=== PATIENT | female | born 1995 | race Caucasian/White ===

== ENCOUNTER 2024-02-29 10:04 | Emergency (ER) | payer OTHER, SELFPAY ==
[2024-02-29] VITALS (9 sets, daily range): BP systolic 94–120; BP diastolic 63–88; PULSE 90–96
[2024-02-29 10:33] LABS: % Basophils 0.4 % (0-2); % Immature Granulocytes 0.2 % (0-0.5); % Lymphocytes 20.8 % (20.5-51.1); % Monocytes 16.5 % (1.7-9.3); % Neutrophils 62.1 % (42.2-75.2); Absolute Monocytes 0.8 10^3/uL (0.1-0.6); Absolute Neutrophils 2.9 10^3/uL (1.4-6.5); Hematocrit 38.4 % (37.0-47.0); Mean Corp Hgb Conc. 33.9 g/dL (33.0-37.0); Mean Corpuscular Hgb 29.9 pg (27.0-31.0); Mean Corpuscular Volume 88.3 fL (81.0-99.0); Mean Platelet Volume 9.8 fL (7.4-10.4); Nucleated Red Blood Cells % 0 %; Platelet Count 161 10^3/uL (130-400); Red Blood Cell Count 4.35 10^6/uL (4.20-5.40); Red Cell Dist. Width 11.9 % (11.5-14.5); White Blood Cell Count 4.6 10^3/uL (4.8-10.8)
[2024-02-29 10:44] LABS: HCG, Serum Qualitative Screen Negative
[2024-02-29 10:46] LABS: ALT (SGPT) 13 U/L (0-35); AST (SGOT) 20 U/L (14-36); Alkaline Phosphatase 61 U/L (38-126); Blood Urea Nitrogen 13 mg/dl (7-17); Calcium 8.2 mg/dl (8.4-10.2); Carbon Dioxide 25 mmol/L (22-30); Chloride 102 mmol/L (98-107); Glucose 103 mg/dl (70-99); Potassium 3.8 mmol/L (3.5-5.1); Sodium 137 mmol/L (135-145); Total Bilirubin 0.3 mg/dl (0.2-1.3); Total Protein 6.7 g/dl (6.3-8.2); eGFR > 60.00
[2024-02-29 10:47] LABS: COVID-19 Antigen Negative (Negative)
--- NOTE | 2024-02-29 11:10 | ED.GENMED ---
History of Present Illness
<Martina Jimenez MD, Resident - Last Filed: 02/29/24 13:10>
General
Chief Complaint: Fainting/Passed Out
Source: patient and spouse
Exam Limitations: none
Time Seen by Provider: 02/29/24 10:42
Nursing documentation reviewed up to this point in time: agreed with
History of Present Illness
History of Present Illness:
28yo F with no significant PMH who presents from home for an episode of syncope. Prior to passing out, she felt lightheaded/dizzy, hot, sweaty, and her vision went dark. Her was present and lowered her to the ground; reports she was
unconscious for about a minute. No head injury, seizure-like activity, postictal confusion. No loss of bladder/bowel function, no biting tongue. Denies palpitations, arrhythmias, or cardiac history. She has been feeling ill with a viral syndrome
since -- reports cough, runny nose, sore throat, decreased appetite, poor oral intake causing dehydration. Took her temperature and was 102.2 yesterday, and 102.9 this morning. Has been taking tylenol in AM and nyquil in PM for this.
Past History
<Martina Jimenez MD, Resident - Last Filed: 02/29/24 13:10>
Past History
ED Past Medical History: None and Other (scoliosis)
ED Past Surgical History: None
Patient has exhibited threatening behavior?: No
Social History
Tobacco: Non-smoker
Alcohol: None
Drug: None
Personal:
Living: with family
Employment: Employed
Family History
Family History: Diabetes (maternal grandmother), Hypertension (father) and Other (father- heart failure)
Review of Systems
<Martina Jimenez MD, Resident - Last Filed: 02/29/24 13:10>
Review of Systems
Allergies reviewed?: Yes
Constitutional: Reports fever and fatigue
EENT: Reports sore throat and runny nose
Respiratory: Reports cough; Denies hemoptysis or trouble breathing
Cardiac: Reports diaphoresis and syncope; Denies chest pain or palpitations
ABD/GI: Reports anorexia; Denies abdominal pain, nausea, vomiting, diarrhea, constipated, bloody stools or black stools
: Reports no symptoms
Musculoskeletal: Reports no symptoms
Skin: Reports no symptoms
Neurological: Reports dizzy and headache
Endocrine: Reports no symptoms
Hematologic/Lymphatic: Reports no symptoms
Psychiatric: Reports no symptoms
Phy Exam
<Martina Jimenez MD, Resident - Last Filed: 02/29/24 13:10>
General Physical Exam
General Presentation: well appearing and no apparent distress
General age: appears stated age
General Skin: warm and dry
General Habitus: normal
General Mental: alert
General Hydration: dry mucous membranes
Cardiovascular Exam
Cardiovascular Exam: regular rate/rhythm, no edema, no JVD and no murmur
Heart Sounds: normal
Pulmonary Exam
Pulmonary Exam: lungs clear, no respiratory distress, no crackles, no wheezing and no cough
Oxygen Status: room air
Respirations: other (nonlabored breathing)
Gastrointestinal Exam
Gastrointestinal Exam: normal bowel sounds, non tender, soft and non distended
Neurological Exam
Neurological Exam: alert, oriented x3, no motor deficits and speech normal
Psychiatric Exam
Psychiatric Exam: normal mood/affect and other (calm)
Sepsis
<Martina Jimenez MD, Resident - Last Filed: 02/29/24 13:10>
Sepsis Screening
Sepsis Assessment: Sepsis Ruled Out
Sepsis Screen
Sepsis Screen: Sepsis Ruled Out
Date: 02/29/24
Time: 13:10
Course
<Martina Jimenez MD, Resident - Last Filed: 02/29/24 13:10>
Orders/Labs/Results
Orders:
Orders
02/29/24 10:09
Electrocardiogram (*1) Urgent
Reason for Study: Chest Pain
EKG- Treatment ONCE
02/29/24 10:10
Test Result ONCE
02/29/24 10:16
COVID-19 Antigen Urgent
Source: Nasal Swab
Complete Blood Count/With Diff Urgent
Comprehensive Metabolic Panel Urgent
HCG, Serum Qualitative Screen Urgent
Comment: Notify provider if positive test present
Influenza A+B Rapid Molecular Urgent
SYDNIE Source: Nasal Swab
Specimen Description:
02/29/24 11:08
Orthostatic VS- Treatment ONCE
0.9% Sodium Chloride 1000 ml [Nss] 1,000 ml IV BOLUS
02/29/24 11:27
Acetaminophen [Tylenol] 1,000 mg PO NOW STA
Abnormal Lab Results
02/29/24
10:16
WBC 4.6 L 10^3/uL
(4.8-10.8)
Absolute Lymphs (auto) 1.0 L 10^3/uL
(1.2-3.4)
Absolute Monos (auto) 0.8 H 10^3/uL
(0.1-0.6)
Monocytes % 16.5 H %
(1.7-9.3)
Glucose 103 H mg/dl
(70-99)
Calcium 8.2 L mg/dl
(8.4-10.2)
02/29/24 10:16
02/29/24 10:16
Vital Signs
Initial and Last Documented VS:
Initial Vital Signs
Temp Pulse Resp BP Pulse Ox
98.3 F 105 16 120/74 98
02/29/24 10:05 02/29/24 10:05 02/29/24 10:05 02/29/24 10:05 02/29/24 10:05
Last Documented Vital Signs
Temp Pulse Resp BP Pulse Ox
98.4 F 83 19 102/69 99
02/29/24 11:25 02/29/24 11:30 02/29/24 11:30 02/29/24 11:21 02/29/24 11:30
<Diana Joseisael, DO - Last Filed: 02/29/24 11:21>
Orders/Labs/Results
Orders:
Orders
02/29/24 10:09
Electrocardiogram (*1) Urgent
Reason for Study: Chest Pain
EKG- Treatment ONCE
02/29/24 10:10
Test Result ONCE
02/29/24 10:16
COVID-19 Antigen Urgent
Source: Nasal Swab
Complete Blood Count/With Diff Urgent
Comprehensive Metabolic Panel Urgent
HCG, Serum Qualitative Screen Urgent
Comment: Notify provider if positive test present
Influenza A+B Rapid Molecular Urgent
SYDNIE Source: Nasal Swab
Specimen Description:
02/29/24 11:08
Orthostatic VS- Treatment ONCE
0.9% Sodium Chloride 1000 ml [Nss] 1,000 ml IV BOLUS
02/29/24 11:27
Acetaminophen [Tylenol] 1,000 mg PO NOW STA
Abnormal Lab Results
02/29/24
10:16
WBC 4.6 L 10^3/uL
(4.8-10.8)
Absolute Lymphs (auto) 1.0 L 10^3/uL
(1.2-3.4)
Absolute Monos (auto) 0.8 H 10^3/uL
(0.1-0.6)
Monocytes % 16.5 H %
(1.7-9.3)
Glucose 103 H mg/dl
(70-99)
Calcium 8.2 L mg/dl
(8.4-10.2)
02/29/24 10:16
01/17/25 10:16
Vital Signs
Initial and Last Documented VS:
Initial Vital Signs
Temp Pulse Resp BP Pulse Ox
98.3 F 105 16 120/74 98
02/29/24 10:05 02/29/24 10:05 02/29/24 10:05 02/29/24 10:05 02/29/24 10:05
Last Documented Vital Signs
Temp Pulse Resp BP Pulse Ox
98.4 F 83 19 102/69 99
02/29/24 11:25 02/29/24 11:30 02/29/24 11:30 02/29/24 11:21 02/29/24 11:30
<Martina Jimenez MD, Resident - Last Filed: 02/29/24 13:10>
MDM/Problems Addressed
Differential Diagnosis Includes:
vasovagal syncope, orthostasis secondary to dehydration/poor oral intake, influenza, covid
less likely to be neurologic, presentation not consistent with seizure
less likely to be cardiac in nature, normal sinus rhythm on ekg, no arrythmias on tele monitor
MDM/Problems Addressed:
CBC and CMP unremarkable, hcg negative
Influenza positive-- reviewed with patient, continue supportive measures
Suspect syncope secondary to dehydration/poor oral intake associated with the flu
Will check orthostatic vital signs
Will give IVF bolus 1L NS, tylenol and reassess
If remains clincially stable, anticipate discharge home with supportive measures and outpatient pcp follow up prn
<Martina Jimenez MD, Resident - Last Filed: 02/29/24 13:10>
*Critical Care Note
Total Time (30-74mins, 75-104mins- exclusive of procedures): Not Applicable
<Martina Jimenez MD, Resident - Last Filed: 02/29/24 13:10>
Update Note
Update Note:
Orthostatic VS reassuring. Patient feeling better after about half of IV NS bolus. Will give rest of bolus and anticipate discharge home.
1253: S/p IVF bolus. Patient feeling better. Reviewed supportive care for flu, encouraged PO hydration at home.
ED Attending Note
<Martina Jimenez MD, Resident - Last Filed: 02/29/24 13:10>
-
Portions of this chart may have been created with voice recognition software.� Occasional wrong word or��sound alike� substitutions may have occurred due to the inherent limitations of voice recognition software.
<Diana De Leon DO - Last Filed: 02/29/24 11:21>
ED Attending Note
Patient seen and examined by attending physician: Yes
I performed the substantive portion of visit, reviewed & personally made and approve the management plan that is documented in note by myself or CIRILO.: Yes
I performed a history and physical exam of patient and discussed management with resident, I reviewed resident's note and agree with documented findings and plan of care.: Yes
ED Attending Note:
28-year-old female without significant past medical history presenting after a syncopal episode. Patient reports she was lying in bed, got up quickly went to the bathroom to brush her teeth. She started to feel dizzy and lightheaded, diaphoretic
and had a witnessed syncopal episode by her . No report of any head injury. Notes that she came to it after about a minute. Denies any history of syncope in the past. Denies any prodromal chest pain or difficulty breathing. Does report
since last she has been having viral URI symptoms, cough, body aches, headache, fever. with similar symptoms. Denies any present chest pain, difficulty breathing, abdominal pain. Last menstrual period was January 28. Vital
signs on arrival are normal.
On exam patient is well-appearing, no acute distress or discomfort. Unremarkable cardiac and pulmonary exam. No focal neurologic deficits. EKG nonischemic, no arrhythmia. Symptoms appear most consistent with a vasovagal etiology of his syncope,
likely from volume depletion. Patient had laboratory analysis and viral swab prior to my assessment, positive for influenza. Consistent with patient's symptoms. Will check status and start patient IV fluids and ensure stable on
ambulation with plan for discharge and continued outpatient supportive therapy. Patient out of the window for Tamiflu.
Discharge Plan
Departure
Patient Disposition: Home (Routine Discharge)
Date of Disposition: 02/29/24
Time of Disposition: 12:54
Patient with high blood pressure during this ER visit?: No
Discharge Problem:
Syncope, non cardiac, Influenza
Instructions: Flu in adults - ED discharge instructions, Fainting in adults - ED discharge instructions
Referrals:
Nehal Rodas MD [Family Provider] -
Interventions
Interventions:
*Risk Screen - Suicide Last Done: 02/29/24 10:05
*General Assessment Last Done: 02/29/24 10:05
*Neglect/Abuse Screening Last Done: 02/29/24 10:05
ED- Cardiac Assessment Last Done: 02/29/24 11:36
ED- Neurological Assessment Last Done: 02/29/24 11:36
Discharge Date and Time
Print Language: BERMUDIAN
[2024-02-29] MEDS: NSS 1000 IV (11:24)
== END 2024-02-29 13:21 | disposition home or self-care (01) ==
LOC: EMR 10:04
PROVIDERS: Student in an Organized Health Care Education/Training Program; EMERGENCY PHYSICIAN Student in an Organized Health Care Education/Training Program; FAMILY PHYSICIAN Family Medicine
DX: R55 Syncope and collapse (principal); J10.1 Influenza due to other identified influenza virus with other respiratory manifestations
CPT/HCPCS: 96360; 99284; 80053; 84703; 85025; 87502; 87811; 93005